=== PATIENT | male | born 1960 | race Caucasian/White ===

== ENCOUNTER → 2023-12-13 11:03 | Outpatient (REF) | payer BC, SELFPAY | LOC: HWRCS 11:03 | PROVIDERS: ATTENDING PHYSICIAN Internal Medicine Cardiovascular Disease; FAMILY PHYSICIAN Family Medicine | DX: R03.0 Elevated blood-pressure reading, without diagnosis of hypertension (principal); R94.31 Abnormal electrocardiogram [ECG] [EKG] | CPT/HCPCS: 93306 ==

== ENCOUNTER → 2023-12-14 07:35 | Outpatient (REF) | payer BC, SELFPAY ==
[2023-12-14] MEDS: LEXISCAN 0.400000000000000022 MG IV (09:02)
== END ==
LOC: RCS 07:35
PROVIDERS: ATTENDING PHYSICIAN Internal Medicine Cardiovascular Disease; FAMILY PHYSICIAN Family Medicine
DX: M54.2 Cervicalgia (principal); R94.31 Abnormal electrocardiogram [ECG] [EKG]
CPT/HCPCS: 78452; 93017; A9500; J2785

== ENCOUNTER → 2023-12-15 10:33 | Outpatient (REF) | payer BC, SELFPAY ==
[2023-12-15 11:18] LABS: % Basophils 0.9 % (0-2); % Eosinophils 2.5 % (0-6); % Immature Granulocytes 0.2 % (0-0.5); % Lymphocytes 35.2 % (20.5-51.1); % Monocytes 6.8 % (1.7-9.3); % Neutrophils 54.4 % (42.2-75.2); Absolute Basophils 0.1 10^3/uL (0-0.2); Absolute Eosinophils 0.1 10^3/uL (0-0.7); Absolute Monocytes 0.4 10^3/uL (0.1-0.6); Absolute Neutrophils 3.1 10^3/uL (1.4-6.5); Hematocrit 41.8 % (39.0-52.0); Hemoglobin 14.4 g/dL (13.0-18.0); Mean Corp Hgb Conc. 34.4 g/dL (33.0-37.0); Mean Corpuscular Hgb 31.2 pg (27.0-31.0); Mean Corpuscular Volume 90.7 fL (80.0-94.0); Mean Platelet Volume 9.7 fL (7.4-10.4); Nucleated Red Blood Cells % 0 % (-); Platelet Count 236 10^3/uL (130-400); Red Blood Cell Count 4.61 10^6/uL (4.70-6.10); Red Cell Dist. Width 13.3 % (11.5-14.5); White Blood Cell Count 5.7 10^3/uL (4.8-10.8)
[2023-12-15 12:37] LABS: ALT (SGPT) 35 U/L (0-50); AST (SGOT) 33 U/L (17-59); Albumin 4.4 g/dl (3.5-5.0); Alkaline Phosphatase 72 U/L (38-126); Blood Urea Nitrogen 18 mg/dl (9-20); Calcium 9.4 mg/dl (8.4-10.2); Carbon Dioxide 25 mmol/L (22-30); Chloride 104 mmol/L (98-107); Glucose 114 mg/dl (70-99); Potassium 4.5 mmol/L (3.5-5.1); Sodium 137 mmol/L (135-145); Total Bilirubin 0.6 mg/dl (0.2-1.3); Total Protein 7.3 g/dl (6.3-8.2); eGFR > 60.00
== END ==
LOC: REG 10:33
PROVIDERS: ATTENDING PHYSICIAN Internal Medicine Cardiovascular Disease; FAMILY PHYSICIAN Family Medicine
DX: R94.39 Abnormal result of other cardiovascular function study (principal); R94.31 Abnormal electrocardiogram [ECG] [EKG]
CPT/HCPCS: 36415; 80053; 85025

== ENCOUNTER 2023-12-19 15:43 | Inpatient (IN) | payer BC, SELFPAY ==
[2023-12-16 23:54] VITALS: BMI 36.1
[2023-12-16 23:59] VITALS: BP 152/90
[2023-12-17] VITALS (11 sets, daily range): BP systolic 116–153; BP diastolic 62–83; BMI 35.3
--- NOTE | 2023-12-17 00:25 | ED.GENMED ---
History of Present Illness
General
Chief Complaint: Chest Pain
Source: patient
Exam Limitations: none
Time Seen by Provider: 12/17/23 00:06
Travel History
Have you had any contact with someone who has COVID-19?: No
Do you have any symptoms of coronavirus? Fever > 100 degrees, chills, cough, shortness of breath, sore throat, loss of taste or smell, muscle aches, or headache?: No
History of Present Illness
History of Present Illness:
This is a 63 year old male that comes in with c/o chest pain. States that he was to have knee surgery but he mentioned to his Dairy Consultant that he was having some left sided chest discomfort just below the neck. State that he had a Chemically
induced stress test yesterday here. States that he was told that he may have some chest pressure last night which he did and he didn't think anything of this. States that today he started with this chest pressure that would come and go. States that
occasionally he had some left arm numbness and tingling and his toes on the left foot were tingling. States that he had nausea yesterday and he felt a little dizzy today. States that he did have a 1/2 of bottle of wine tonight. States that he is to
have a cardiac cath on Tuesday. Denies any pain at this time. Denies any fever, chills, SOB, abd pain, vomiting, diarrhea, headache, urinary burning.
Past History
Past History
ED Past Medical History: CAD, GERD, HTN, Hypercholesterolemia and Other (Anemia, GI bleeding, Sleep apnea, Constipation)
ED Past Surgical History: Orthopedic (Right and left knee surgery) and Other (Hemorrhoids banded)
Social History
Tobacco: Non-smoker
Alcohol: Daily (Wine 1/2 bottle)
Personal: Single (Partner )
Living: alone
Review of Systems
Review of Systems
All Other Systems: ROS reviewed and negative except as documented in HPI and ROS
Constitutional: Reports no symptoms; Denies fever or chills
EENT: Reports no symptoms
Respiratory: Reports no symptoms; Denies cough or trouble breathing
Cardiac: Reports chest pain
ABD/GI: Reports nausea; Denies abdominal pain, vomiting or diarrhea
: Reports no symptoms; Denies dysuria, frequency or urgency
Musculoskeletal: Reports no symptoms
Skin: Reports no symptoms
Neurological: Reports dizzy; Denies headache
Psychiatric: Reports no symptoms
Phy Exam
General Physical Exam
General Presentation: well appearing and no apparent distress
General age: appears stated age
General Skin: warm and dry
General Habitus: normal
General Mental: alert
General Hydration: appears well hydrated
ENT Exam
ENT Exam: TM's normal, pharynx normal and neck supple
Eye Exam
Eye Exam: EOMI
Cardiovascular Exam
Cardiovascular Exam: regular rate/rhythm, no edema and normal peripheral pulses
Pulmonary Exam
Pulmonary Exam: lungs clear, no respiratory distress, no rales, chest non tender, no crackles, no rhonchi, no wheezing and no cough
Gastrointestinal Exam
Gastrointestinal Exam: normal bowel sounds, non tender, soft, no organomegaly, no pulsatile mass and non distended
Musculoskeletal Exam
Musculoskeletal Exam: full ROM and no edema
Skin Exam
Skin Exam: normal color, warm/dry, no rash and no petechia
Psychiatric Exam
Psychiatric Exam: normal mood/affect
Scores
Heart Score for Chest Pain Patients
STEMI patient?: No
History: Moderately Suspicious
ECG: Nonspecific Repolarization
Age: >45 - <65 years
Risk Factors: >/= 3 Risk Factors or History of CAD
Troponin: </= Normal Limit
Heart Score for Chest Pain Patients: 5
Heart Score Risk: 20.3% MACE over next 6 weeks
Course
Orders/Labs/Results
Orders:
Orders
12/16/23 23:59
Electrocardiogram (*1) Urgent
Reason for Study: Chest Pain
EKG- Treatment ONCE
CMP [Comprehensive Metabolic Panel] Urgent
Complete Blood Count/With Diff Urgent
Troponin I Urgent
12/17/23 00:25
CR Chest - 2 Views Urgent
Comment:
Reason For Exam: Chest pain
12/17/23 02:27
EKG- Treatment ONCE
12/17/23 02:52
Consult Cardiology [CARDIOLOGY CONSULT] Urgent
Consulting Provider: Floyd Best
Was physician already notified: Yes
12/17/23 03:30
Troponin I Urgent
12/17/23 03:40
Electrocardiogram (*1) Urgent
Reason for Study: Chest Pain
Other Reason for Exam: Repeat with Troponin
Abnormal Lab Results
12/17/23
00:42
RBC 4.34 L 10^6/uL
(4.70-6.10)
MCH 31.3 H pg
(27.0-31.0)
Monocytes % 10.6 H %
(1.7-9.3)
Glucose 109 H mg/dl
(70-99)
12/17/23 00:42
12/17/23 00:42
Glucose nonfasting. Troponin <0.012
Vital Signs
Initial and Last Documented VS:
Initial Vital Signs
Temp Pulse Resp BP Pulse Ox
97.8 F 90 22 152/90 98
12/16/23 23:59 12/16/23 23:59 12/16/23 23:59 12/16/23 23:59 12/16/23 23:59
Last Documented Vital Signs
Temp Pulse Resp BP Pulse Ox
97.8 F 69 19 133/82 95
12/16/23 23:59 12/17/23 03:00 12/17/23 03:00 12/17/23 03:00 12/17/23 03:00
MDM/Problems Addressed
Differential Diagnosis Includes:
Coronary syndrome.
MDM/Problems Addressed:
This is a 63 year old male that comes in with c/o chest pain. States that he had a chemically induced stress test yesterday. States that he was told that he may have some chest pressure which he did last night and he thought this was normal. States
that he went to bed. States that today he has had this on and off chest pressure. States that he felt he better get this checked out. Denies any pain at this time.
Will get labs and chest x-ray.
Message sent to Dr. Best with ECG. Patient stress test was abnormal and he is due for a cath on Tuesday. ECG shows T wave inversion. Await response.
Dr. Best felt that with ECG changes patient should be admit for monitoring but would have the Hospitalist admit. Will put Cardiology on Consult. Hospitalist notified.
Repeat ECG. Rate 74, 1st degree heart block, Left axis, Normal QRS, T wave inversion, I, aVL, V5, V6,
Chronic conditions affecting care: CAD
Acute Exacerbation and/or Progression of Chronic Illness: CAD
*Radiology
Radiology exam reviewed: preliminary read by ED provider (Chest- Negative for active disease. )
*Pulse Oximetry
Patient hypoxic: no
*EKG
Interpreted by ED Provider?: Yes
Heart Rate: 76
Rate: normal
Rhythm: sinus
[place]: left axis deviation
Interval: normal interval
QRS Pattern: normal QRS
Ischemia: T-wave inversion (I, aVR, aVL, V5 V6 Checked by Dr. López)
*Morning Babysitter Interpretation
Rate: normal
Heart Rate: 79
Rhythm: sinus
*Critical Care Note
Total Time (30-74mins, 75-104mins- exclusive of procedures): Not Applicable
ED Attending Note
-
Portions of this chart may have been created with voice recognition software.� Occasional wrong word or��sound alike� substitutions may have occurred due to the inherent limitations of voice recognition software.
Discharge Plan
Departure
Patient Disposition: Admit
Date of Disposition: 12/17/23
Time of Disposition: 02:53
Admit to: Telemetry
Presentation/result/management discussed w/ accepting MD/DO: Hospitalist
Patient with high blood pressure during this ER visit?: Yes
Condition: Good
Covid-19: Not Applicable
Discharge Problem:
Chest pain with ECG changes
Referrals:
Chuy Avila MD [Family Provider] -
Interventions
Interventions:
*Risk Screen - Suicide Last Done: 12/16/23 23:59
*Neglect/Abuse Screening Last Done: 12/16/23 23:59
ED- Cardiac Assessment Last Done: 12/17/23 01:23
Discharge Date and Time
Print Language: SWAZI
[2023-12-17 00:53] LABS: % Basophils 0.5 % (0-2); % Eosinophils 2.7 % (0-6); % Immature Granulocytes 0.2 % (0-0.5); % Lymphocytes 36.9 % (20.5-51.1); % Monocytes 10.6 % (1.7-9.3); % Neutrophils 49.1 % (42.2-75.2); Absolute Eosinophils 0.2 10^3/uL (0-0.7); Absolute Lymphocytes 2.2 10^3/uL (1.2-3.4); Absolute Monocytes 0.6 10^3/uL (0.1-0.6); Absolute Neutrophils 2.9 10^3/uL (1.4-6.5); Hematocrit 39.5 % (39.0-52.0); Hemoglobin 13.6 g/dL (13.0-18.0); Mean Corp Hgb Conc. 34.4 g/dL (33.0-37.0); Mean Corpuscular Hgb 31.3 pg (27.0-31.0); Mean Platelet Volume 9.7 fL (7.4-10.4); Nucleated Red Blood Cells % 0 % (-); Platelet Count 206 10^3/uL (130-400); Red Blood Cell Count 4.34 10^6/uL (4.70-6.10); Red Cell Dist. Width 13.3 % (11.5-14.5); White Blood Cell Count 5.9 10^3/uL (4.8-10.8)
[2023-12-17 01:05] LABS: ALT (SGPT) 34 U/L (0-50); AST (SGOT) 30 U/L (17-59); Albumin 4.1 g/dl (3.5-5.0); Alkaline Phosphatase 89 U/L (38-126); Blood Urea Nitrogen 19 mg/dl (9-20); Calcium 9.2 mg/dl (8.4-10.2); Carbon Dioxide 25 mmol/L (22-30); Chloride 106 mmol/L (98-107); Glucose 109 mg/dl (70-99); Potassium 4.2 mmol/L (3.5-5.1); Sodium 135 mmol/L (135-145); Total Bilirubin 0.3 mg/dl (0.2-1.3); eGFR > 60.00
[2023-12-17 01:15] LABS: Troponin I < 0.012 ng/ml
--- NOTE | 2023-12-17 03:08 | HPS.HSE ---
Family Physician
-
Family Physician: Chuy Avila
Chief Complaint
-
Chest pain
History of Present Illness
This is a 63-year-old male with past medical history significant for hyperlipidemia, hypertension, obesity, prior GI bleed who is being having recurrent chest pain and is status post pharmacological stress test a few days ago comes into the
emergency department with recurrent left-sided chest pain.
Patient reports that he has been having recurrent left-sided chest pain that occasionally radiates to his left shoulder and last a few minutes before resolving. He states he had multiple episodes 1 year ago and today had fewer episodes. There was
some associated nausea when there ago but not currently. He denies shortness of breath or dyspnea on exertion. He denied any vomiting. He denied any diaphoresis. Patient reported that he started taking aspirin 2 days ago due to symptoms.
He does report recent loss of her longtime partner with associated increased rest at work as well. Stress test (12/13) showed moderate risk for ischemia with reversible changes in the base and mid anterior segments.
On arrival in the ED today he was hemodynamically stable with a blood pressure 133/80 and normal pulse rate and oxygen saturation on room air. His initial troponin was 0.012. Chest x-ray was clear. ECG shows a normal sinus rhythm however there
were new T wave inversions in V5 through 6. CBCs and chemistries are all within normal limits.
Medical History
Past Medical History
Past Medical History: Reports HTN and Hypercholesterolemia
Additional Past Medical History:
Depression
GI bleed,
DELFINA
Past Surgical History: Reports None
Social History
Tobacco: Non-smoker
Alcohol: Occasional
Drug: None
Personal: Single
Living: Alone
Employment: Not Employed
Family History
Family History: CAD
Allergies / Home Medications
Allergies reflects when Allergies were last updated in [facility].
Home Medications with original date entered in [facility]
Allergy/Medication List:
Allergies
Allergy/AdvReac Type Severity Reaction Status Date / Time
No Known Allergies Allergy Verified 12/17/23 00:02
Home Medications
Aspirin 81 mg tablet po daily
pravastatin 10 mg tablet 10 mg PO QPM
tadalafil 10 mg tablet (Cialis) 10 mg PO MOFR
Review of Systems
-
History Source: Patient
Constitutional: Reports No Symptoms
EENT: Reports No Symptoms
Respiratory: Reports No Symptoms
Cardiac: Reports Chest Pain
Abdomen/GI: Reports No Symptoms
: Reports No Symptoms
Musculoskeletal: Reports No Symptoms
Skin: Reports No Symptoms
Neurological: Reports No Symptoms
Endocrine: Reports No Symptoms
Hematologic/Lymphatic: Reports No Symptoms
Psych: Reports No Symptoms
Physical Exam
Vital Signs
Vital Signs
Temp Pulse Resp BP Pulse Ox
97.8 F 70 18 133/82 96
12/16/23 23:59 12/17/23 02:30 12/17/23 02:30 12/17/23 02:00 12/17/23 02:30
Physical Exam
General: Well Developed, Well Nourished, Comfortable and Obese
HEENT: NormoCephalic, Anicteric, Moist mucous membranes and PERRLA
Respiratory: Clear
Cardiac: S1/S2 and Regular Rhythm
Breast: Deferred by me
GI: Soft, Non Tender, Non Distended and Normal Bowel Sounds
Rectal: Deferred by Provider
Genito-urinary: Deferred by me
Musculoskeletal: No Clubbing, No Cyanosis and No Edema
Skin: Warm and Dry
Neuro: AO x 3
Hematologic/Lymphatic: No Lymphadenopathy
Psych: Calm
Laboratory Results
-
12/17/23 00:42
12/17/23 00:42
Laboratory Results
Total Bilirubin 0.3 mg/dl (0.2-1.3) 12/17/23 00:42
AST 30 U/L (17-59) 12/17/23 00:42
ALT 34 U/L (0-50) 12/17/23 00:42
Alkaline Phosphatase 89 U/L (38-126) 12/17/23 00:42
Troponin I < 0.012 ng/ml 12/17/23 00:42
Data Reviewed
-
Diagnostic Radiology: Image Personally Visualized and interpreted
Ultrasound: Report Reviewed by me
Medical Tests (Nuc Med, Echo, EKG etc): Image Personally Visualized and interpreted and Report Reviewed by me
Lab Data: Labs Reviewed by me
Impression/Plan
-
IMPRESSION:
PLAN:
1. Chest pain - Typical chest pain with new TWI in V5 and 6. Unstable angina suspected. Recent positive stress test with normal echo. Troponin is negative and patient is currently chest pain free. Planned cardiac cath for tuesday according to
patient's service officer (Dr. Dawson).
- admit to observation, can be discharged if w/u is negative and remains free of chest pain and f/u with cath on tuesday
- telemetry, cycle enzymes
- sl-ntg prn chest pain
- continue aspirin, statin for now
- lipid panel and a1c
- cardiology consultation by ED.
DVT PPX - lovenox sq
Full Code
[2023-12-17 04:10] LABS: Troponin I < 0.012 ng/ml
[2023-12-17 06:39] LABS: HDL Cholesterol 50 mg/dl; LDL Cholesterol, Calculated 111 mg/dl; Total Cholesterol 180 mg/dl (50-199); Triglyceride 95 mg/dl (10-149); Very Low Density Lipoprotein 19 mg/dl (0-30)
[2023-12-17 06:44] LABS: Troponin I < 0.012 ng/ml
--- NOTE | 2023-12-17 07:59 | W.PN.UPDATE ---
Update Note
Progress Note Update
Patient seen and examined.
63-year-old male with past medical history significant for hyperlipidemia, hypertension, obesity, prior GI bleed who is being having recurrent chest pain and is status post pharmacological stress test a few days ago comes into the emergency
department with recurrent left-sided chest pain.
Appreciate cardiology input, continue aspirin, nitrates, IV heparin. Pravastatin changed to atorvastatin.
Plan for cardiac catheterization on Tuesday.
Patient complains of constipation and gas. Start MiraLAX daily, simethicone.
--- NOTE | 2023-12-17 08:45 | CON.CAR ---
Addendum entered and electronically signed by Floyd Best MD 12/17/23 13:03:
63 yo male with hyperlipidemia. Admitted with chest pressure. Had recent nuclear stress test with anterior ischemia, with plans for outpatient cath. However, he developed more chest pressure and presented to ED. Exam with RRR, no murmurs, no
edema. TnI <0.012, EKG with NSR, lateral TWI.
Concern for unstable angina/ACS. ASA, heparin drip. Plan for cath Tuesday.
Addendum entered and electronically signed by Pita Loya NP 12/17/23 09:26:
Consult was done 12/17/2023 not 12/16/2023
Original Note:
Consultation
Consultation Request
Date/Time Consultation Requested: 12/16/2023 0800
Date/Time Consultation Performed: 12/16/2023 0815
Requesting Provider: Dr. Govea
Performing Provider: Dr. Best
Reason for Consultation: CP
Medical History
-
Chief Complaint: CP
History of Present Illness:
63 y/o pt known to Dr. Dawson seen in OP cardiology office 12/12/2023 for preop eval for L knee TKA. He noted upper L chest pressure at times. He had lexiscan stress test 12/14/23 which was abnormal. Plan was for LHC on
12/18/23 . He developed recurrent chest pressure L side of chest last pm. He had some tingling in L arm and maybe L leg as well. It lasted several minutes. No SOB, diaphoresis, nausea associated. Lasted several minutes. Has not had recurrent symptoms
since admit.
Past Medical History
Past Medical History: Other ( elevated BP, hyperlipidemia, ED)
Past Surgical History: Other (Flex sigmoidoscopy)
Social History
Tobacco: Non-Smoker
Alcohol: Occasional
Living: Alone
Family History
Family History: Reviewed & Not Pertinent
Allergies / Home Medications
Allergy/AdvReac Type Severity Reaction Status Date / Time
No Known Allergies Allergy Verified 12/17/23 00:02
�Medication �Instructions �Recorded �Confirmed �Type
aspirin 81 mg tablet 81 mg PO DAILY 12/17/23 12/17/23 History
pravastatin 10 mg tablet 10 mg PO HS 12/17/23 12/17/23 History
Review of Systems
-
History Source: Patient
Constitutional: No Symptoms
EENT: No Symptoms
Respiratory: No Symptoms
Cardiac: Chest Pain (chest pressure L side of chest )
Abdomen/GI: Other (bloating, gas)
: No Symptoms
Musculoskeletal: Joint Pain (L knee )
Neurological: No Symptoms
Physical Exam
Vital Signs
Temp Pulse Resp BP Pulse Ox
98.2 F 72 18 116/73 99
12/17/23 07:00 12/17/23 07:00 12/17/23 07:00 12/17/23 07:00 12/17/23 07:00
Lab Results
12/17/23 00:42
12/17/23 00:42
Troponin I < 0.012 ng/ml 12/17/23 06:09
Physical Exam
General: Well Developed and No Apparent Distress
HEENT: Normocephalic and Moist Mucous Membranes
Respiratory: Clear
Cardiac: S1/S2 and Regular Rhythm
GI: Soft, Non Distended and Normal Bowel Sounds
Musculoskeletal: No Edema
Skin: Warm and Dry
Neuro: AO x 3
Psych: Calm
Impression / Plan
-
CP/[place]:
-pt with recurrent CP in setting of recent abnormal stress test concerning for [place].
-full dose asa now, IV heparin , nitrate
-troponin negative so far
-change pravastatin to atorvastatin LDL 111
-con't with plan for [facility]
hyperlipidemia:
-pravastatin as OP LDL 111
elevated BP without dx of HTN: as OP was noted to have elevated BP's. Will monitor while here.
Data Reviewed
-
EKG: Tracing Personally Visualized and interpreted (NSR 69 bpm, T wave abn V4- V6 )
Radiology: Image Personally Visualized and interpreted and Report Reviewed by me (CXR 12/17/23 no acute process )
Medical Tests (Nuc Med, Echo etc): Report Reviewed by me (Lexiscan stress Perfusion shows a small-sized, mild intensity, reversible defect involving the base to mid anterior segments consistent with ischemia. ) and Other (Echo 12/13/23 EF 55-60,
no valvular disease. )
Labs: Labs Reviewed by me and Discussed with Physician
Old Records: Reviewed
Critical Care Time (in minutes): OP cardiology notes 12/12/23
[2023-12-17] MEDS: LOW STRENGTH ASPIRIN 324 MG PO (09:07)
[2023-12-17] MEDS: MIRALAX 17 GRAMS PO (09:07)
--- NOTE | 2023-12-17 09:25 | CON.CAR ---
Medical History
Allergies / Home Medications
Allergy/AdvReac Type Severity Reaction Status Date / Time
No Known Allergies Allergy Verified 12/17/23 00:02
�Medication �Instructions �Recorded �Confirmed �Type
aspirin 81 mg tablet 81 mg PO DAILY 12/17/23 12/17/23 History
pravastatin 10 mg tablet 10 mg PO HS 12/17/23 12/17/23 History
Physical Exam
Vital Signs
Temp Pulse Resp BP Pulse Ox
98.2 F 72 18 116/73 99
12/17/23 07:00 12/17/23 07:00 12/17/23 07:00 12/17/23 07:00 12/17/23 07:00
Lab Results
12/17/23 00:42
12/17/23 00:42
Troponin I < 0.012 ng/ml 12/17/23 06:09
Impression / Plan
-
CP/[place]:
-pt with recurrent CP in setting of recent abnormal stress test concerning for [place].
-full dose asa now, IV heparin , nitrate
-troponin negative so far
-change pravastatin to atorvastatin LDL 111
-con't with plan for [facility]
hyperlipidemia:
-pravastatin as OP LDL 111
elevated BP without dx of HTN: as OP was noted to have elevated BP's. Will monitor while here.
[2023-12-17] MEDS: HEPARIN 25000 UNITS/250 ML IV (10:12)
[2023-12-17 10:36] LABS: Troponin I < 0.012 ng/ml
[2023-12-17 10:46] LABS: APTT 31.3 Sec (23.4-35.0)
[2023-12-17 10:48] LABS: Glycohemoglobin (HgbA1c) 6.1 % (4.0-5.6)
[2023-12-17] MEDS: LIPITOR 40 MG PO (17:33)
[2023-12-17] MEDS: MYLICON 80 MG PO (20:34)
[2023-12-18 01:36] LABS: APTT 75.9 Sec (23.4-35.0)
[2023-12-18 03:00] VITALS: BP 131/84
[2023-12-18] MEDS: HEPARIN 25000 UNITS/250 ML IV (07:17)
[2023-12-18 07:30] VITALS: BP 150/87
[2023-12-18 07:57] LABS: Hematocrit 44.2 % (39.0-52.0); Hemoglobin 14.9 g/dL (13.0-18.0); Mean Corp Hgb Conc. 33.7 g/dL (33.0-37.0); Mean Corpuscular Hgb 31.6 pg (27.0-31.0); Mean Corpuscular Volume 93.8 fL (80.0-94.0); Mean Platelet Volume 9.9 fL (7.4-10.4); Platelet Count 216 10^3/uL (130-400); Red Blood Cell Count 4.71 10^6/uL (4.70-6.10); Red Cell Dist. Width 13.2 % (11.5-14.5); White Blood Cell Count 5.6 10^3/uL (4.8-10.8)
[2023-12-18 08:02] LABS: APTT 72.3 Sec (23.4-35.0)
[2023-12-18 08:13] LABS: Blood Urea Nitrogen 17 mg/dl (9-20); Calcium 9.7 mg/dl (8.4-10.2); Carbon Dioxide 26 mmol/L (22-30); Chloride 104 mmol/L (98-107); Estimated Creatinine Clearance 95 ml/min; Glucose 116 mg/dl (70-99); Magnesium 2.3 mg/dl (1.6-2.3); Potassium 4.6 mmol/L (3.5-5.1); Sodium 137 mmol/L (135-145); eGFR > 60.00
[2023-12-18] MEDS: MIRALAX 17 GRAMS PO ×2 (09:08→20:55)
[2023-12-18] MEDS: LOW STRENGTH ASPIRIN 81 MG PO (09:08)
--- NOTE | 2023-12-18 09:21 | W.PN.HOSP.TC ---
Today's Communication/Plan
-
For cardiac catheterization tomorrow
Assessment / Plan
Assessment / Plan
#Chest pain concerning for angina
#Recent abnormal stress test
Appreciate cardiology input, continue aspirin, statin, Coreg, heparin drip
Plan for cardiac catheterization tomorrow
#Constipation
Increased MiraLAX to twice a day, continue simethicone 4 times daily
#History of bleeding hemorrhoids
Monitor, no bleeding reported
#Glucose intolerance
Informed pt that he needs carb controlled diet
Hemoglobin A1c 6.1
#Morbid obesity due to excess calories
Affects all aspects of care
DVT prophylaxis�IV heparin drip
Full code
Total time spent to see the patient on the floor, examine the patient, review data and lab results, discuss treatment plan with patient, nursing staff around 35 minutes.
Physical Exam
General: Obese, no acute distress
HEENT: Normocephalic, Atraumatic, EOMI, MMM
Respiratory: Clear to Auscultation bilaterally
Cardiac: Normal S1/S2, Regular Rate and Rhythm
GI: Soft, Nontender, Nondistended, Normal Bowel Sounds
Extremities: No Clubbing, Cyanosis, or Edema
Neuro: Nonfocal/Grossly Intact
Psych: Calm, Cooperative
Derm: No Visible lesions
Anticipated Discharge: 24 - 48 hours
Subjective/Interval History
-
Date of Service: December 18, 2023
No more chest pressure. No bleeding hemorrhoids. No fever, no vomiting.
Objective Data
-
Labs:
Laboratory Results
12/18/23 12/18/23 12/18/23
01:18 07:35 15:15
WBC 5.6
Hgb 14.9
Hct 44.2
Plt Count 216
APTT 75.9 H 72.3 H Pending
Sodium 137
Potassium 4.6
Chloride 104
Carbon Dioxide 26
BUN 17
Creatinine 0.9
Glucose 116 H
Calcium 9.7
Vital Signs:
Vital Signs
Temp Pulse Resp BP Pulse Ox
98.1 F 75 14 150/87 98
12/18/23 07:30 12/18/23 07:30 12/18/23 07:30 12/18/23 07:30 12/18/23 07:30
I&O
12/17/23 12/18/23 12/19/23
06:59 06:59 06:59
Intake Total 400 / 400 1800 / 1800
Balance 400 / 400 1800 / 1800
[2023-12-18 11:45] VITALS: BP 165/88
[2023-12-18] MEDS: MYLICON 80 MG PO ×3 (12:27→20:55)
[2023-12-18] MEDS: COREG 12.5 MG PO (12:27)
--- NOTE | 2023-12-18 15:35 | W.PN.CD ---
Today's Communication / Plan
-
ASA, heparin drip with monitoring of PTT
cath in AM
Impression / Plan
-
Chest pain: admitted with unstable angina
-CP in setting of recent abnormal stress test (anterior ischemia)
-EKG with anterolateral TWI
-ASA, heparin drip with monitoring of PTT, coreg
-cath in AM
hyperlipidemia:
-pravastatin as OP LDL 111: changed to atorvastatin 40mg
elevated BP without dx of HTN: as OP was noted to have elevated BP's. Will monitor while here.
-now on coreg
Physical Exam
Vital Signs/Labs
Vital Signs
Temp Pulse Resp BP Pulse Ox
98.3 F 79 16 165/88 95
12/18/23 11:45 12/18/23 11:45 12/18/23 11:45 12/18/23 11:45 12/18/23 11:45
12/17/23 12/18/23 12/19/23
06:59 06:59 06:59
Actual Weight 99.11 kg
12/18/23 07:35
12/18/23 07:35
APTT 72.3 Sec (23.4-35.0) H 12/18/23 07:35
Magnesium 2.3 mg/dl (1.6-2.3) 12/18/23 07:35
Triglycerides 95 mg/dl (10-149) 12/17/23 06:09
LDL Cholesterol, Calc 111 mg/dl 12/17/23 06:09
VLDL Cholesterol, Calc 19 mg/dl (0-30) 12/17/23 06:09
HDL Cholesterol 50 mg/dl 12/17/23 06:09
LAB Results
12/17/23 12/17/23 12/17/23
00:42 03:30 06:09
Troponin I < 0.012 < 0.012 < 0.012
12/17/23
09:17
Troponin I < 0.012
Physical Exam
Constitutional: No acute distress and Comfortable
EENT: Moist mucous membranes
Cardiovascular: Rhythm & rate is regular, Pedal edema is absent, JVD pressure is normal and Systolic murmur absent
Respiratory: Respiratory effort normal, Lungs clear to auscul. and Wheeze Absent
GI: Soft, Distention absent and Flat
Neuro/Psych: AO x 3
Data Reviewed
-
Date of Service: December 18, 2023
EKG: Other (Tele: SR 80s)
Labs: Labs Reviewed by me
[2023-12-18 16:00] VITALS: BP 145/80
[2023-12-18] MEDS: LIPITOR 40 MG PO (16:55)
[2023-12-18 19:35] VITALS: BP 143/75
[2023-12-18] MEDS: COREG PO (20:58)
[2023-12-18 23:15] VITALS: BP 121/63
[2023-12-19] VITALS (10 sets, daily range): BP systolic 109–135; BP diastolic 65–79
[2023-12-19 06:13] LABS: APTT 78.9 Sec (23.4-35.0)
[2023-12-19 06:16] LABS: Hematocrit 41.4 % (39.0-52.0); Hemoglobin 14.4 g/dL (13.0-18.0); Mean Corp Hgb Conc. 34.8 g/dL (33.0-37.0); Mean Corpuscular Hgb 31.6 pg (27.0-31.0); Platelet Count 216 10^3/uL (130-400); Red Blood Cell Count 4.55 10^6/uL (4.70-6.10); Red Cell Dist. Width 13.2 % (11.5-14.5); White Blood Cell Count 5.8 10^3/uL (4.8-10.8)
[2023-12-19 06:27] LABS: Blood Urea Nitrogen 17 mg/dl (9-20); Calcium 9.9 mg/dl (8.4-10.2); Carbon Dioxide 26 mmol/L (22-30); Chloride 104 mmol/L (98-107); Estimated Creatinine Clearance 85 ml/min; Glucose 108 mg/dl (70-99); Magnesium 2.2 mg/dl (1.6-2.3); Potassium 4.4 mmol/L (3.5-5.1); Sodium 139 mmol/L (135-145); eGFR > 60.00
[2023-12-19] MEDS: MYLICON 80 MG PO ×4 (08:19→21:13)
[2023-12-19] MEDS: COREG 12.5 MG PO ×2 (08:19→20:34)
[2023-12-19] MEDS: LOW STRENGTH ASPIRIN 81 MG PO (08:20)
[2023-12-19] MEDS: MIRALAX 17 GRAMS PO ×2 (08:20→20:34)
--- NOTE | 2023-12-19 08:54 | W.PN.CD ---
Today's Communication / Plan
-
Cardiac catheterization today.
Impression / Plan
-
Impression/Plan: 63 y/o male with HLD and abnormal stress test admitted with unstable angina.
#Chest pain
-Admitted with unstable angina.
-Recent abnormal stress test (anterior ischemia).
-EKG with anterolateral TWI.
-Troponin < 0.012 x3.
-Continue carvedilol, ASA, heparin drip with monitoring of PTT.
-Cardiac catheterization today.
#Hyperlipidemia:
-Chronic.
-Total cholesterol = 180, LDL = 111, HDL = 50, Triglycerides = 95
-Outpatient pravastatin changed to atorvastatin 40 mg.
#Elevated BP without dx of HTN
-As OP, was noted to have elevated BP's. Will monitor while here.
-Now on carvedilol.
Subjective/Interval History:
No acute events.
No subjective complaints.
DATA:
TTE, 12/13/2023:
CONCLUSIONS
Normal left ventricular size, wall thickness and systolic function.
Estimated ejection fraction is 55-60%.
No significant valvular disease.
No prior study available for comparison.
Physical Exam
Vital Signs/Labs
Vital Signs
Temp Pulse Resp BP Pulse Ox
36.8 C 68 16 135/74 95
12/19/23 07:00 12/19/23 07:00 12/19/23 07:00 12/19/23 08:19 12/19/23 07:00
12/17/23 12/18/23 12/19/23
11:59 11:59 11:59
Actual Weight 99.11 kg
12/19/23 05:42
12/19/23 05:42
APTT 78.9 Sec (23.4-35.0) H 12/19/23 05:42
Magnesium 2.2 mg/dl (1.6-2.3) 12/19/23 05:42
Triglycerides 95 mg/dl (10-149) 12/17/23 06:09
LDL Cholesterol, Calc 111 mg/dl 12/17/23 06:09
VLDL Cholesterol, Calc 19 mg/dl (0-30) 12/17/23 06:09
HDL Cholesterol 50 mg/dl 12/17/23 06:09
LAB Results
12/17/23 12/17/23 12/17/23
00:42 03:30 06:09
Troponin I < 0.012 < 0.012 < 0.012
12/17/23
09:17
Troponin I < 0.012
Physical Exam
Constitutional: No acute distress and Comfortable
EENT: Anicteric and Moist mucous membranes
Cardiovascular: Rhythm & rate is regular, Pedal edema is absent, JVD pressure is normal, S1S2 is normal and Murmur/rub/gallop absent
Respiratory: Respiratory effort normal, Lungs clear to auscul., Wheeze Absent, Crackles Absent and Rhonchi Absent
GI: Soft, Distention absent, Flat, Non tender and Normal bowel sounds
Neuro/Psych: AO x 3
Data Reviewed
-
Date of Service: December 19, 2023
Medical Decision Making: Reviewed Test Results, Independent Historian Assessment and Test Interpretation
EKG: Tracing Personally Visualized and interpreted and Report Reviewed by me
Echo: Report Reviewed by me
X-Ray/CT/US/MRI/NUC/PET: Image Personally Visualized and interpreted and Report Reviewed by me
Labs: Labs Reviewed by me
Old Records: Reviewed
--- NOTE | 2023-12-19 09:45 | W.PN.HOSP.TC ---
Addendum entered and electronically signed by Elliot Tong MD 12/19/23 14:01:
post cardic cath had transient peripheral vision change only to right eye / Stroke alert called / CT head WNL and no bleed/ will stop Heparin drip as prelim Cardiac cath reports no significant atherosclerotic lesions / will obtain Carotid doppler
after speaking w/ Neurology
Original Note:
Today's Communication/Plan
-
For cardiac cath today await results
Disposition and discharge plan as per cardiology
Assessment / Plan
Assessment / Plan
#Chest pain concerning for angina
#Recent abnormal stress test
Appreciate cardiology input, continue aspirin, statin, Coreg, heparin drip
Plan for cardiac catheterization today
#Constipation
Increased MiraLAX to twice a day, continue simethicone 4 times daily
#History of bleeding hemorrhoids
Monitor, no bleeding reported
#Glucose intolerance
Informed pt that he needs carb controlled diet
Hemoglobin A1c 6.1
#Morbid obesity due to excess calories
Affects all aspects of care
DVT prophylaxis�IV heparin drip
Full code
Total time spent to see the patient on the floor, examine the patient, review data and lab results, discuss treatment plan with patient, nursing staff around 35 minutes.
Physical Exam
General: Obese, no acute distress
HEENT: Normocephalic, Atraumatic, EOMI, MMM
Respiratory: Clear to Auscultation bilaterally
Cardiac: Normal S1/S2, Regular Rate and Rhythm
GI: Soft, Nontender, Nondistended, Normal Bowel Sounds
Extremities: No Clubbing, Cyanosis, or Edema
Neuro: Nonfocal/Grossly Intact
Psych: Calm, Cooperative
Derm: No Visible lesions
Anticipated Discharge: Within 24 hours
Subjective/Interval History
-
Date of Service: December 19, 2023
No issues overnight denies any chest discomfort shortness of breath
Objective Data
-
Labs:
Laboratory Results
12/19/23
05:42
WBC 5.8
Hgb 14.4
Hct 41.4
Plt Count 216
APTT 78.9 H
Sodium 139
Potassium 4.4
Chloride 104
Carbon Dioxide 26
BUN 17
Creatinine 1.0
Glucose 108 H
Calcium 9.9
Vital Signs:
Vital Signs
Temp Pulse Resp BP Pulse Ox
98.3 F 68 16 135/74 95
12/19/23 07:00 12/19/23 07:00 12/19/23 07:00 12/19/23 08:19 12/19/23 07:00
I&O
12/18/23 12/19/23 12/20/23
06:59 06:59 06:59
Intake Total 1800 / 1800 1500 / 1500
Balance 1800 / 1800 1500 / 1500
Review of Systems
-
History Source: Patient
All other systems: Not reviewed unless documented
Physical Exam
-
General: Well Developed
HEENT: Normocephalic
Respiratory: Clear to Auscultation
Cardiac: Regular Rhythm
GI: Soft
Neuro: Awake and Alert
Psych: Calm
Data Reviewed
-
Total Time Spent with Patient (in minutes): 56
Labs: Labs Reviewed by me
--- NOTE | 2023-12-19 11:31 | ITS.CL.CATH ---
Animal Shelter Clerk - Catheterization
Cardiac Catheterization
Procedure Report:
CARDIAC CATHETERIZATION REPORT
Date of Procedure: 12/19/2023
Referring: Floyd Best M.D., Ph.D.
INDICATION: Abnormal stress test, unstable angina.
PROCEDURE:
1. Left heart catheterization.
2. Coronary angiography.
ACCESS:
6 Japanese right radial artery.
CATHETERS:
1. 5 Japanese JR4.
2. 5 Japanese JL 3.5.
HEMODYNAMIC DATA
Weight (kg): 98.9
AO (s/d/x, mmHg): 135/88/108
LV (s/x mmHg): 135/15
LEFT VENTRICULOGRAPHY: Not performed.
CORONARY ANGIOGRAPHY
Dominance: Right.
Left Main: Normal size, bifurcating vessel. There is no coronary artery disease.
LAD: Normal size vessel giving rise to 2 significant diagonals before wrapping around the apex and supplying the distal third of the interventricular septum. There is no coronary artery disease. There is generalized slow flow through the entire
coronary tree.
Ramus: Congenitally absent.
Circumflex: Normal size, nondominant vessel giving rise to 2 significant marginals. There is no coronary artery disease. Both marginals are at least moderately tortuous. There is generalized slow flow throughout the vessel.
RCA: Normal size, dominant vessel with a significant posterolateral arcade. There is no coronary artery disease. There is generalized slow flow throughout.
INTERVENTION(S)
None.
Closure Device: Vascular band.
Radiation (mGy): 424.03
DAP (cm2.Gy): 35.2996
Fluoroscopy time (minutes): 3.2
Sedation time (minutes): 23
CONCLUSIONS
1. Right dominant circulation with no coronary artery disease.
2. There is generalized slow flow throughout the entire coronary tree, consistent with endovascular dysfunction.
3. Top normal to mildly elevated filling pressures (LVEDP = 15 mmHg at 98.9 kg).
RECOMMENDATIONS:
1. Expectant management after cardiac catheterization via right radial approach.
2. Limited weight bearing on the right wrist for one week.
3. Start diltiazem 120 mg daily for combination of rate control as well as for microvascular dilation.
4. Stable for outpatient follow-up.
Copy to: Floyd Best M.D., Ph.D., Maximo Dawson M.D., Chuy Avila M.D.
Emir Powers DO, FACC, FACP
--- NOTE | 2023-12-19 11:45 | PTCARENOTE ---
pt returned from cardiac cath, awake and alert, denies any pain. R band intact to right wrist, no bleeding/hematoma. CB in reach..
[2023-12-19] MEDS: CARDIZEM CD 120 MG PO (12:01)
--- NOTE | 2023-12-19 12:22 | CM ---
Met with pt at bedside, friends present
Pt reports he lives alone in a multi-story home
Working, independent
DME - none
SNF/HH - no past hx
Has ride at d/c
PCP - Dr Chuy Avila
Pharm - [facility]
Discussed obs letter - given copy. Did not sign
Requesting rolling walker - PT to be consulted
Pt and friends plan for him to stay at friends house when d/c'ed. They will transport.
Plan - anticipate home no needs
--- NOTE | 2023-12-19 12:24 | PTCARENOTE ---
d/w cardiology to d/c heparin gtt
--- NOTE | 2023-12-19 13:15 | PTCARENOTE ---
While at bedside for radial check, pt c/o transient vision changes to right eye, states he feels like he was staring at a bright light. denies ever feeling like this before. Reports he noticed it after cardiac cath procedure and was just hoping it
would go away. Reaching out to cardiology for visual change S/P cardiac cath.
--- NOTE | 2023-12-19 13:20 | PTCARENOTE ---
Cardiology EDGER HAND at bedside, recommending stroke alert.
--- NOTE | 2023-12-19 13:22 | RR ---
A Rapid Response was called on this patient, please see Rapid Response form.
--- NOTE | 2023-12-19 13:22 | W.PN.UPDATE ---
Addendum entered and electronically signed by Emir Powers DO 12/19/23 16:29:
Attestation: I have seen and examined the patient. I can confirm Ms. Urbina's findings and I agree with her assessment and plan as documented.
63-year-old male with hyperlipidemia who underwent cardiac catheterization earlier today for unstable angina now with central visual deficit in the right eye. He describes it as 'looking into a bright light'.
A stroke alert was previously called and he was evaluated by neurology. CT scan is negative.
On follow-up, the patient continues to have this visual disturbance. He denies headache or other sensory/motor deficits.
I will discuss the situation with neurology to see if follow-up brain MRI is indicated.
Original Note:
Update Note
Progress Note Update
Contacted by nursing: Patient having visual changes in right eye.
He is having loss of peripheral vision looking at a photo on the wall. He also is having a norton curtain in his line of vision. He is having no changes in his left eye. He was wearing his glasses during my exam.
No upper extremity weakness. No lower extremity weakness.
Speech is clear. There is no facial droop.
Right radial site with TR band. No hematoma.
Stroke alert called given acute visual changes.
[2023-12-19 13:23] LABS: Glucose - Point of Care 173 mg/dl (70-99)
--- NOTE | 2023-12-19 13:28 | PTCARENOTE ---
pt transported to CT with clinical educator and ICU nurse
--- NOTE | 2023-12-19 13:35 | CON.NEURO4 ---
Consultation - Neurology 4
-
CONSULTING PHYSICIAN: Gwendolyn Atkins
REFERRING PHYSICIAN: Hospitalist
DICTATED BY: Gwendolyn Atkins
DATE/TIME OF REQUEST: 12/19/23
DATE/TIME OF CONSULTATION: 12/19/23
Reason for Consultation: Right eye vision change
History of Present Illness:
Patient is a 63 year old man with history of obesity, hyperlipidemia presented to hospital with chest pain concerning for potential angina. He underwent coronary angiography this morning which showed no significant atherosclerotic coronary
disease, some irregular blood flow thought to represent endothelial dysfunction. After cardiac catheterization developed abnormal right eye vision change he had not ever experienced before. He describes it as the same phenomenon one gets when
looking at a bright object or light for a while and then looking away, like a bright beaver in the middle of his vision. This is isolated to the right eye only. He denies history of migraine headaches or having had a spontaneous issues like this
before. No weakness, speech difficulty, paresthesia. It is persistent still after stroke alert and CT head imaging.
Past Medical History: Obesity, hyperlipidemia, hemorrhoids
Surgical History: Cardiac catheterization
Family History: Non-contributory
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
Allergies: No known drug allergies
Review of Symptoms:
Patient denies any fever, headache, chest pain, shortness of breath, GI or symptoms.
Physical Exam:
Well appearing middle aged man, no trauma to head or neck, eyes clear, oropharnyx clear, heart rate regular, breathing unlabored, right radial wrist access site covered, no lower extremity edema
Neurologic Examination:
The patient is awake, alert and oriented x 3. He is able to follow commands and answer questions appropriately. There is no aphasia or dysarthria. On cranial nerve assessment, pupils are 3 mm bilateral, round and reactive to light and
accommodation. Visual paz are full. Extraocular movements are intact. Vision 20/20 to near card testing bilaterally. Facial sensations are intact and bilaterally symmetrical, there is no facial asymmetry. Hearing is intact bilaterally to normal
conversation volume. Tongue palate and uvula are midline. Sternocleidomastoid strengths are full bilaterally. Motor strengths are 5/5 bilateral upper and lower extremities on medical research [place] scale. There is no drift or involuntary movement
noted. Deep tendon reflexes are 2+ bilateral upper and lower extremities and Babinski is absent bilaterally. Sensations of pain, touch, temperature and vibration are intact and bilaterally symmetrical. There was no extinction noted on double
simultaneous stimulation. Coordination is intact by finger to nose bilaterally.
Neuro Imaging: CT head non contrast with no hemorrhage, no acute infarct seen, bilateral basal ganglia calcifications seen, no masses or edema
Impressions
1. Right eye photopsia after cardiac catheterization. Migraine visual aura without headache is possible. Embolic Ischemic lesion to retina with cardiac catheterization is possible.
2.
3.
4.
IV Tenecteplase/IAT candidacy: Non disabling symptoms indicate risks of TNK would outweigh the benefits, no signs to indicate an LVO would not be an IAT candidate
Recommendations:
1. Check carotid ultrasound
2. Okay to come off heparin infusion from my POV
3. Would continue aspirin 81 mg daily for time being
4. Would monitor for improvement
5. With no headache not recommending triptan or migraine treatment
Discussed patient care with: Patient, hospitalist, cardiology
[2023-12-19] MEDS: LIPITOR 40 MG PO (17:00)
[2023-12-20 03:00] VITALS: BP 120/64
[2023-12-20 06:13] LABS: Hematocrit 41.3 % (39.0-52.0); Hemoglobin 14.4 g/dL (13.0-18.0); Mean Corp Hgb Conc. 34.9 g/dL (33.0-37.0); Mean Corpuscular Hgb 31.6 pg (27.0-31.0); Mean Corpuscular Volume 90.6 fL (80.0-94.0); Mean Platelet Volume 9.7 fL (7.4-10.4); Platelet Count 207 10^3/uL (130-400); Red Blood Cell Count 4.56 10^6/uL (4.70-6.10); Red Cell Dist. Width 13.2 % (11.5-14.5); White Blood Cell Count 6.1 10^3/uL (4.8-10.8)
[2023-12-20 06:35] LABS: Blood Urea Nitrogen 18 mg/dl (9-20); Calcium 9.6 mg/dl (8.4-10.2); Carbon Dioxide 26 mmol/L (22-30); Chloride 104 mmol/L (98-107); Estimated Creatinine Clearance 85 ml/min; Glucose 107 mg/dl (70-99); Magnesium 2.1 mg/dl (1.6-2.3); Potassium 4.5 mmol/L (3.5-5.1); Sodium 139 mmol/L (135-145); eGFR > 60.00
[2023-12-20 07:00] VITALS: BP 119/70
--- NOTE | 2023-12-20 07:33 | W.PN.CD ---
Today's Communication / Plan
-
Maintain carvedilol, diltiazem.
Discuss MRI with neurology.
Discharge planning.
Impression / Plan
-
Impression/Plan: 63 y/o male with HLD and abnormal stress test admitted with chest pain, found to have endothelial dysfunction but no CAD, complicated by right sided visual changes post cardiac catheterization.
#Chest pain/Endothelial dysfunction
-Recent abnormal stress test (anterior ischemia).
-EKG with anterolateral TWI.
-Troponin < 0.012 x3.
-Cardiac catheterization shows no epicardial CAD, but there is slow flow throughout the coronary tree, consistent with endothelial dysfunction.
-Continue carvedilol. Diltiazem started yesterday.
#Visual Changes
-Acute.
-Described as 'like I looked into a bright light and the ghost of that light is still there'.
-Symptoms isolated to the right eye (not homonymous hemianopsia or a scotoma).
-Stroke alert called. CT head negative. Carotid Duplex negative.
-Neurology following. Appreciate their input.
-We will decide on MRI today. Symptoms seem like they could be related to a retinal issue vs. contrast reaction given microvascular dysfunction.
#Hyperlipidemia:
-Chronic.
-Total cholesterol = 180, LDL = 111, HDL = 50, Triglycerides = 95
-Outpatient pravastatin changed to atorvastatin 40 mg.
#Elevated BP without dx of HTN
-As OP, was noted to have elevated BP's. Will monitor while here.
-Now on carvedilol and diltiazem.
Subjective/Interval History:
Cath shows no CAD but slow flow - likely endothelial dysfunction.
Diltiazem started.
Patient developed right eye visual changes yesterday, prompting stroke alert.
CT head negative.
Duplex negative.
Visual abnormality persists.
DATA:
TTE, 12/19/2023:
CONCLUSIONS
Normal left ventricular size, wall thickness and systolic function.
LV ejection fraction is 65% .
No significant valvular disease.
Compared to the previous echo 12/13/2023 there is no significant change.
Cardiac Catheterization, 12/20/2023:
CONCLUSIONS
1. Right dominant circulation with no coronary artery disease.
2. There is generalized slow flow throughout the entire coronary tree, consistent with endovascular dysfunction.
3. Top normal to mildly elevated filling pressures (LVEDP = 15 mmHg at 98.[address] Head, 12/19/2023:
IMPRESSION:
No acute intracranial abnormality.
Aspect score: 10
Carotid Artery Duplex, 12/19/2023:
IMPRESSION: No plaque is identified bilaterally. Carotid velocity measurements bilaterally are within normal limits and no stenosis is identified. Vertebral artery flow is antegrade bilaterally.
Physical Exam
Vital Signs/Labs
Vital Signs
Temp Pulse Resp BP Pulse Ox
36.8 C 62 14 120/64 97
12/20/23 03:00 12/20/23 03:00 12/20/23 03:00 12/20/23 03:00 12/20/23 03:00
12/20/23 05:39
12/20/23 05:39
APTT 78.9 Sec (23.4-35.0) H 12/19/23 05:42
Magnesium 2.1 mg/dl (1.6-2.3) 12/20/23 05:39
Triglycerides 95 mg/dl (10-149) 12/17/23 06:09
LDL Cholesterol, Calc 111 mg/dl 12/17/23 06:09
VLDL Cholesterol, Calc 19 mg/dl (0-30) 12/17/23 06:09
HDL Cholesterol 50 mg/dl 12/17/23 06:09
LAB Results
12/17/23
09:17
Troponin I < 0.012
Physical Exam
Constitutional: No acute distress and Comfortable
EENT: Anicteric and Moist mucous membranes
Cardiovascular: Rhythm & rate is regular, Pedal edema is absent, JVD pressure is normal, S1S2 is normal and Murmur/rub/gallop absent
Respiratory: Respiratory effort normal, Lungs clear to auscul., Wheeze Absent, Crackles Absent and Rhonchi Absent
GI: Soft, Distention absent, Flat, Non tender and Normal bowel sounds
Neuro/Psych: AO x 3
Other: Cath Site (Right radial access site is C/D/I.)
Data Reviewed
-
Date of Service: December 20, 2023
Medical Decision Making: Reviewed Test Results, Independent Historian Assessment and Test Interpretation
EKG: Tracing Personally Visualized and interpreted and Report Reviewed by me
Echo: Tracing Personally Visualized and interpreted and Report Reviewed by me
X-Ray/CT/US/MRI/NUC/PET: Report Reviewed by me
Medical Tests (PFT, Pathology etc): Image Personally Visualized and interpreted and Report Reviewed by me
Labs: Labs Reviewed by me
[2023-12-20] MEDS: MYLICON 80 MG PO (07:59)
[2023-12-20] MEDS: LOW STRENGTH ASPIRIN 81 MG PO (07:59)
[2023-12-20] MEDS: CARDIZEM CD 120 MG PO (07:59)
[2023-12-20] MEDS: COREG 12.5 MG PO (08:00)
[2023-12-20] MEDS: MIRALAX 17 GRAMS PO (08:01)
--- NOTE | 2023-12-20 08:57 | W.PN.UPDATE ---
Update Note
Progress Note Update
Seen on morning rounds and proposed discharge date
Patient still has what he describes as vision changes almost like floaters in his right eye does have some retained acuity but describes a [place] area and when he puts his hand on over his right eye and compresses it and opens his eye and worsens he
has no contralateral vision changes no headache no bright migraine history. He has no focal other areas involved/I reached out to neurology who feel that obtaining further imaging including MRI would not be productive he is anxious to go see his
residential door unit installer and I encouraged him to do so he has been cleared to be discharged by cardiology and he seen by follow-up
--- NOTE | 2023-12-20 11:01 | CM ---
Pt for d/c today
Plans to stay with friends initially
Has ride with friends
Plan - home no needs
--- NOTE | 2023-12-20 11:20 | W.DCSUMMARY ---
Discharge Summary
Discharge Data
Date of Admission: 12/19/23
Date of Discharge: 12/20/23
Total time spent discharging patient (in min): 45
-
Pending Results: No
Hospital Course
This is a 63-year-old male with a known history of hyperlipidemia and an abnormal stress test as an outpatient with presentation of chest pain admitted to observation status initially for the purpose of obtaining a cardiac catheterization for
further delineation. Troponins x 3 proved negative for elevation he was placed on a heparin drip overnight and proceeded to the cardiac Retail Selling Floor Leader the following morning he had no recurrence of chest pain. His exam prior to cardiac cath was
unremarkable cardiac catheterization showed no epicardial coronary artery disease there was slow flow throughout the coronary tree consistent with endothelial dysfunction opinion was to place the patient on low-dose beta-blockade in the form of
carvedilol 12.5 mg twice daily along with diltiazem 120 mg . On return from the Retail Selling Floor Leader the patient was noted to have a complaint of right visual disturbance describing a sensation as a bright light and a ghost of that light is still there'. He
did not exhibit homonymous hemianopsia or scotomas but described more like floaters that remained the following day after overnight admission. He was seen by the neurology service who considered a migrainosus component of which the patient has no
history of. A CT of the head was unremarkable for any signs of bleeding or mass effect and carotid ultrasound was unremarkable neurology diagnosis was right I photopsia after car cardiac catheterization considerations also for embolic ischemic
lesion to the retina. On further referral with the neurology service they felt that an MRI would not be contributory in the setting and suggested follow-up with ophthalmology as outpatient. Continuation of aspirin therapy for the time being
recommended he was given prescriptions for his new dosages of carvedilol and diltiazem . Patient was hesitant to change his pravastatin to atorvastatin given his concerns over his present symptoms and trying to minimize changes in his medications.
Discharge Plan
-
Patient Disposition: Home (Routine Discharge)
Discharge Diagnosis/Procedures: Chest pain/noncardiac
Right Eye photopsia after cardiac catheterization
Condition: Fair
Diet: No restrictions
Activity: No restrictions
Driving Restrictions: As prior to admission
Referrals:
Chuy Avila MD [Family Provider] - in less than 1 week (Had what is described as 'photopsia' per neurology after cardiac catheterization involving right eye/)
Floyd Best MD [Active] - (Will follow-up with Dr. Dawson)
Prescriptions:
New
carvedilol 12.5 mg Tablet
12.5 mg PO BID Qty: 60 0RF
diltiazem HCl 120 mg Capsule,Extended Release 24hr
120 mg PO DAILY Qty: 30 0RF
Continued
aspirin 81 mg Tablet
81 mg PO DAILY
pravastatin 10 mg Tablet
10 mg PO HS
Discharge Orders:
Discharge Patient (As Directed); Ordered 12/20/23
Ordered By: Elliot Tong
Discharge Date and Time
Discharge Date/Time: 12/20/23 10:57
Print Language: LATVIAN
== END 2023-12-20 10:57 | disposition home or self-care (01) | DRG 287 ==
LOC: 3 WEST ACU 15:43
PROVIDERS: Clinical Nurse Specialist Family Health; Emergency Medicine; Family Medicine; Internal Medicine Cardiovascular Disease; Nurse Practitioner; ADMITTING PHYSICIAN Internal Medicine; ATTENDING PHYSICIAN Internal Medicine; CONSULT PHYSICIAN Internal Medicine; CONSULT PHYSICIAN Student in an Organized Health Care Education/Training Program; EMERGENCY PHYSICIAN Emergency Medicine; FAMILY PHYSICIAN Family Medicine
PROC: B2111ZZ Fluoroscopy of Multiple Coronary Arteries using Low Osmolar Contrast (ICD-10-PCS; 2023-12-19)
PROC: 4A023N7 Measurement of Cardiac Sampling and Pressure, Left Heart, Percutaneous Approach (ICD-10-PCS; 2023-12-19)
DX: I77.9 Disorder of arteries and arterioles, unspecified (principal); R07.89 Other chest pain; E78.00 Pure hypercholesterolemia, unspecified; G47.30 Sleep apnea, unspecified; R94.39 Abnormal result of other cardiovascular function study; F32.A Depression, unspecified; K59.00 Constipation, unspecified; E66.01 Morbid (severe) obesity due to excess calories; D50.9 Iron deficiency anemia, unspecified; E74.39 Other disorders of intestinal carbohydrate absorption; K64.8 Other hemorrhoids; H53.19 Other subjective visual disturbances; I10 Essential (primary) hypertension; K21.9 Gastro-esophageal reflux disease without esophagitis; Z87.19 Personal history of other diseases of the digestive system; Z79.82 Long term (current) use of aspirin; Z68.36 Body mass index [BMI] 36.0-36.9, adult
CPT/HCPCS: 93308; 70450; 71046; 80048; 80053; 80061; 82962; 83036; 83735; 84484; 85025; 85027; 85730; 93005; 93321; 93325; 93458; 93880; 99285; 99406; C1894; Q9967

== ENCOUNTER 2024-10-02 20:07 | Emergency (ER) | payer BC, SELFPAY ==
[2024-10-02 20:10] VITALS: BP 187/94
[2024-10-02 20:39] LABS: % Basophils 0.6 % (0-2); % Eosinophils 3.2 % (0-6); % Immature Granulocytes 0.2 % (0-0.5); Absolute Basophils 0.1 10^3/uL (0-0.2); Absolute Eosinophils 0.3 10^3/uL (0-0.7); Absolute Lymphocytes 2.9 10^3/uL (1.2-3.4); Absolute Monocytes 0.7 10^3/uL (0.1-0.6); Absolute Neutrophils 4.6 10^3/uL (1.4-6.5); Hematocrit 44.2 % (39.0-52.0); Hemoglobin 14.9 g/dL (13.0-18.0); Mean Corp Hgb Conc. 33.7 g/dL (33.0-37.0); Mean Corpuscular Hgb 31.6 pg (27.0-31.0); Mean Corpuscular Volume 93.8 fL (80.0-94.0); Mean Platelet Volume 9.6 fL (7.4-10.4); Nucleated Red Blood Cells % 0 % (-); Platelet Count 227 10^3/uL (130-400); Red Blood Cell Count 4.71 10^6/uL (4.70-6.10); Red Cell Dist. Width 13.4 % (11.5-14.5); White Blood Cell Count 8.5 10^3/uL (4.8-10.8)
[2024-10-02 20:49] LABS: ALT (SGPT) 35 U/L (0-50); AST (SGOT) 30 U/L (17-59); Albumin 4.4 g/dl (3.5-5.0); Alkaline Phosphatase 88 U/L (38-126); Blood Urea Nitrogen 21 mg/dl (9-20); Calcium 9.6 mg/dl (8.4-10.2); Carbon Dioxide 24 mmol/L (22-30); Chloride 106 mmol/L (98-107); Glucose 94 mg/dl (70-99); Potassium 4.1 mmol/L (3.5-5.1); Sodium 138 mmol/L (135-145); Total Bilirubin 0.6 mg/dl (0.2-1.3); Total Protein 7.6 g/dl (6.3-8.2); eGFR > 60.00
[2024-10-02 21:56] VITALS: BP 147/106
[2024-10-02 21:59] VITALS: BMI 31.0
[2024-10-02 22:00] VITALS: BP 140/83
[2024-10-02 23:00] VITALS: BP 142/76
[2024-10-03] VITALS: BP 124/97
--- NOTE | 2024-10-03 00:13 | ED.GENMED ---
History of Present Illness
General
Chief Complaint: Numbness
Source: patient
Exam Limitations: none
Time Seen by Provider: 10/02/24 23:45
History of Present Illness
History of Present Illness:
This a pleasant 63-year-old male that presents with left upper chest pain and numbness in his left arm that has been present for several days. Patient states that he feels like there are needles in his veins. Patient denies actual chest pain or
shortness of breath. He reports no alleviating or exacerbating symptoms. Patient does have a history of coronary artery disease. Patient had similar pain several weeks ago and went to [facility]. Had a normal workup. He does follow-up with
Dr. Dawson, cardiology. He has been in touch with their office recently. Patient denies tobacco, excessive alcohol or illicit drug use.
Past History
Past History
ED Past Medical History: CAD, GERD, HTN, Hypercholesterolemia and Other (Anemia, GI bleeding, Sleep apnea, Constipation)
ED Past Surgical History: Orthopedic (Right and left knee surgery) and Other (Hemorrhoids banded)
Social History
Tobacco: Non-smoker
Alcohol: Daily (Wine 1/2 bottle)
Personal: Single (Partner )
Living: alone
Review of Systems
Review of Systems
Allergies reviewed?: Yes
All Other Systems: ROS reviewed and negative except as documented in HPI and ROS
Constitutional: Reports no symptoms
EENT: Reports no symptoms
Respiratory: Reports no symptoms
Cardiac: Reports chest pain
ABD/GI: Reports no symptoms
: Reports no symptoms
Musculoskeletal: Reports no symptoms
Skin: Reports no symptoms
Neurological: Reports no symptoms
Endocrine: Reports no symptoms
Hematologic/Lymphatic: Reports no symptoms
Psychiatric: Reports no symptoms
Phy Exam
General Physical Exam
General Presentation: well appearing and no apparent distress
General Skin: warm and dry
General Habitus: normal
General Mental: alert
General Hydration: appears well hydrated
ENT Exam
ENT Exam: EOMI, pharynx normal, neck supple and normocephalic
Eye Exam
Eye Exam: PERRL, cornea clear and conjunctiva normal
Cardiovascular Exam
Cardiovascular Exam: regular rate/rhythm, no edema, no murmur and normal peripheral pulses
Pulmonary Exam
Pulmonary Exam: lungs clear, no respiratory distress, no rales, no crackles, no rhonchi, no stridor, no wheezing and no cough
Gastrointestinal Exam
Gastrointestinal Exam: normal bowel sounds, non tender, soft, no organomegaly, no pulsatile mass and non distended
Neurological Exam
Neurological Exam: alert, oriented x3, no motor deficits and speech normal
Musculoskeletal Exam
Musculoskeletal Exam: full ROM and no edema
Skin Exam
Skin Exam: normal color, warm/dry, no rash and no petechia
Psychiatric Exam
Psychiatric Exam: normal mood/affect
Scores
Heart Score for Chest Pain Patients
STEMI patient?: Yes
History: Slightly or Non-Suspicious
ECG: Normal
Age: >45 - <65 years
Risk Factors: 1 or 2 Risk Factors
Troponin: </= Normal Limit
Heart Score for Chest Pain Patients: 2
Heart Score Risk: 2.5% MACE over next 6 weeks
Course
Orders/Labs/Results
Orders:
Orders
10/02/24 20:14
Electrocardiogram (*1) Urgent
Reason for Study: Vertigo / Dizzy
EKG- Treatment ONCE
10/02/24 20:27
Complete Blood Count/With Diff Urgent
Comprehensive Metabolic Panel Urgent
10/03/24 00:13
CT Chest PE Study Urgent
Comment:
Reason For Exam: left upper chest pain
10/03/24 00:27
Troponin I Urgent
Abnormal Lab Results
10/02/24
20:27
MCH 31.6 H pg
(27.0-31.0)
Absolute Monos (auto) 0.7 H 10^3/uL
(0.1-0.6)
BUN 21 H mg/dl
(9-20)
10/02/24 20:27
10/02/24 20:27
Vital Signs
Initial and Last Documented VS:
Initial Vital Signs
Temp Pulse Resp BP Pulse Ox
98.2 F 73 16 187/94 98
10/02/24 20:10 10/02/24 20:10 10/02/24 20:10 10/02/24 20:10 10/02/24 20:10
Last Documented Vital Signs
Temp Pulse Resp BP Pulse Ox
98.2 F 60 19 137/75 98
10/02/24 20:10 10/03/24 02:00 10/03/24 02:00 10/03/24 02:00 10/03/24 02:00
*Critical Care Note
Total Time (30-74mins, 75-104mins- exclusive of procedures): Not Applicable
Update Note
Update Note:
CTA CHEST
IMPRESSION:
1. Adequate technical study. No acute pulmonary embolism.
2. No thoracic aortic aneurysm or acute aortic dissection. Clear lungs.
Incidentals:
- No acute osseous abnormality.
- No acute abnormality within the visualized abdomen.
- No thoracic lymphadenopathy or suspicious lymph nodes.
Case finalized on Oct 03 2024 3:12AM ET
ED Attending Note
-
Portions of this chart may have been created with voice recognition software.� Occasional wrong word or��sound alike� substitutions may have occurred due to the inherent limitations of voice recognition software.
Discharge Plan
Departure
Patient Disposition: Home (Routine Discharge)
Date of Disposition: 10/03/24
Time of Disposition: 03:26
Patient with high blood pressure during this ER visit?: Yes
Condition: Good
Discharge Problem:
Chest pain
Instructions: Chest Pain CBC Follow Up, BLOOD PRESSURE
Prescriptions:
No Action
aspirin 81 mg Tablet
81 mg PO DAILY
pravastatin 10 mg Tablet
10 mg PO HS
diltiazem HCl 120 mg Capsule,Extended Release 24hr
120 mg PO DAILY Qty: 30 0RF
Referrals:
Chuy Avila MD [Family Provider] -
Activity Restrictions/Additional Instructions:
It was a pleasure meeting you and taking part in your care. We hope for your continued healing and wellness.
Please read discharge instructions in their entirety. However, they are for general education and may not describe your exact diagnosis at discharge. Information on your ER visit and medical conditions were discussed with you along with appropriate
follow up information...
If indicated, please take your medications as instructed and indicated on discharge paperwork.
Please schedule a follow up appointment as directed. Call to schedule an appointment
Please return to the emergency department with ANY change in, persisting, or worsening of symptoms. If any of your symptoms do not improve, or persist, or become more severe within 6-12 hours, please return to the emergency department for further
care.
Please return to the emergency department if you develop a headache, neck pain/stiffness, fever greater than 100.4F, chest pain, shortness of breath, persistent nausea, vomiting, slurred speech, difficulty walking, numbness/tingling, weakness, signs
of infection or any other symptoms that are worrisome to you.
If you have any questions or concerns please do not hesitate to call the Hospital at or E-mail me directly at [email or web address]
)
Interventions
Interventions:
*Risk Screen - Suicide Last Done: 10/02/24 20:10
*General Assessment Last Done: 10/02/24 20:10
*Neglect/Abuse Screening Last Done: 10/02/24 20:10
ED- Fall Risk Assessment Last Done: 10/02/24 21:59
*ED COVID-19 Vaccine History Last Done: 10/02/24 20:10
ED- Neurological Assessment Last Done: 10/02/24 21:59
Discharge Date and Time
Print Language: WOLOF
[2024-10-03 01:00] VITALS: BP 145/76
[2024-10-03 01:09] LABS: Troponin I < 0.012 ng/ml
[2024-10-03 02:00] VITALS: BP 137/75
== END 2024-10-03 03:25 | disposition home or self-care (01) ==
LOC: EMR 20:07
PROVIDERS: Emergency Medicine; EMERGENCY PHYSICIAN Student in an Organized Health Care Education/Training Program; FAMILY PHYSICIAN Family Medicine
DX: R07.89 Other chest pain (principal); R20.0 Anesthesia of skin; I25.10 Atherosclerotic heart disease of native coronary artery without angina pectoris; I10 Essential (primary) hypertension; K21.9 Gastro-esophageal reflux disease without esophagitis; E78.00 Pure hypercholesterolemia, unspecified; G47.30 Sleep apnea, unspecified
CPT/HCPCS: 99284; 71275; 80053; 84484; 85025; 93005; Q9967